=== PATIENT | male | born 1945 | race Caucasian/White ===

== ENCOUNTER 2016-11-26 02:11 | Emergency (ER) | payer MEDICARE, OTHER ==
[2016-11-26 02:35] VITALS: BP 131/70; TEMP 98.3; O2SAT 100
--- NOTE | 2016-11-26 02:44 | ED.PDOC ---
History of Present Illness - General Chief Complaint: General Stated Complaint: hiccups, sore throat, high heart rate Time Seen by Provider: 11/26/16 02:41 Source: patient Exam Limitations: no limitations - History of Present Illness Initial Comments: Devonte Saleh 71 y/o male w/dm 2 stated he had multiple episode of hiccups tonight unable to sleep decided to come to er.He stated that while filling up form his symptoms went away.Had previous episodes in the past was prescribed phenergan suppository. Timing/Duration: 4-6 hours, getting worse Severity: moderate Improving Factors: nothing Worsening Factors: nothing Associated Symptoms: denies symptoms Allergies/Adverse Reactions: Allergies NO KNOWN ALLERGY Allergy (Verified 07/26/15 06:26) Home Medications: Ambulatory Orders Aspirin [(None)] 325 mg PO DAILY 07/24/15 Canagliflozin [Invokana] 300 mg PO DAILY 07/24/15 Fluticasone Prop 0.05% Nasal [Flonase Nasal [place]] 50 mcg NA BEDTIME 07/24/15 Meloxicam 15 mg PO DAILY 07/24/15 Multiple Vitamins W/ Minerals [Centrum Silver] 1 tab PO DAILY 07/24/15 [place]-3 Fatty Acids [Fish Oil] 1,200 mg PO DAILY 07/24/15 Pantoprazole Sodium [Protonix] 40 mg PO DAILY 07/24/15 Ramipril 10 mg PO BEDTIME 07/24/15 Rosuvastatin Calcium [Crestor] 10 mg PO BEDTIME 07/24/15 Sitagliptin-Metformin HCl [Janumet] 1 tab PO DAILY 07/24/15 Zolpidem Tartrate [Ambien] 5 mg PO BEDTIME 07/24/15 amLODIPine BESYLATE [Norvasc] 5 mg PO DAILY 07/24/15 Promethazine HCl 50 mg PO TID PRN #30 tab 11/26/16 Review of Systems - Review of Systems Constitutional: States: no symptoms reported EENTM: States: no symptoms reported Respiratory: States: no symptoms reported Cardiology: States: no symptoms reported Gastrointestinal/Abdominal: States: see HPI Musculoskeletal: States: no symptoms reported Skin: States: no symptoms reported Neurological: States: no symptoms reported Endocrine: States: no symptoms reported Past Medical History (General) - Patient Medical History Hx Seizures: No Hx Stroke: No Hx Dementia: No Hx Asthma: No Hx of COPD: No Hx Cardiac Disorders: No Hx Congestive Heart Failure: No Hx Pacemaker: No Hx Hypertension: Yes Hx Thyroid Disease: Yes Hx Diabetes: Yes Hx Gastroesophageal Reflux: Yes Hx Renal Disease: No Hx Cancer: No Hx of HIV: No Hx Hepatitis C: No Hx MRSA: No Surgical History: other - carotid endarterectomy - Vaccination History Hx Tetanus, Diphtheria Vaccination: No Hx Influenza Vaccination: No Hx Pneumococcal Vaccination: No Immunizations Up to Date: Yes - Social History Hx Chewing Tobacco Use: No Hx Alcohol Use: No Hx Substance Use: No Hx Substance Use Treatment: No Hx Depression: No Feels Threatened In Home Enviroment: No Feels Threatened In a Relationship: No Hx Physical Abuse: No Hx Emotional Abuse: No Hx Suspected Abuse: No - Activities of Daily Living Hospice Agency (if applicable):: None Family Medical History - Family History Mother Family History: Unknown Living Status: Hx Family Hypertension: Yes Physical Exam - Physical Exam General Appearance: Alert, Anxious, No apparent distress Eye Exam: bilateral normal Ears, Nose, Throat: hearing grossly normal, normal ENT inspection, normal pharynx Neck: non-tender, full range of motion, supple Respiratory: chest non-tender, lungs clear, normal breath sounds, no respiratory distress, no accessory muscle use Cardiovascular/Chest: normal peripheral pulses, regular rate, rhythm, no edema, no gallop, no JVD, no murmur Peripheral Pulses: radial,right: 2+, radial,left: 2+ Gastrointestinal/Abdominal: normal bowel sounds, non tender, soft, no organomegaly, no pulsatile mass Back Exam: normal inspection, no CVA tenderness, no vertebral tenderness Extremity: normal range of motion, non-tender, normal inspection Neurologic: no motor/sensory deficits, alert, normal mood/affect Skin Exam: normal color, warm/dry Lymphatic: no adenopathy Departure - Departure Clinical Impression: Hiccups Time of Disposition: 02:49 Disposition: Discharge to Home or Self Care Condition: Good Departure Forms: ED Discharge - Pt. Copy, Patient Portal Self Enrollment Instructions: DI for Hiccups, Hiccups Prescriptions: Promethazine HCl 50 mg PO TID PRN #30 tab PRN Reason: hiccups Home Medications: Ambulatory Orders Aspirin [(None)] 325 mg PO DAILY 07/24/15 Canagliflozin [Invokana] 300 mg PO DAILY 07/24/15 Fluticasone Prop 0.05% Nasal [Flonase Nasal [place]] 50 mcg NA BEDTIME 07/24/15 Meloxicam 15 mg PO DAILY 07/24/15 Multiple Vitamins W/ Minerals [Centrum Silver] 1 tab PO DAILY 07/24/15 [place]-3 Fatty Acids [Fish Oil] 1,200 mg PO DAILY 07/24/15 Pantoprazole Sodium [Protonix] 40 mg PO DAILY 07/24/15 Ramipril 10 mg PO BEDTIME 07/24/15 Rosuvastatin Calcium [Crestor] 10 mg PO BEDTIME 07/24/15 Sitagliptin-Metformin HCl [Janumet] 1 tab PO DAILY 07/24/15 Zolpidem Tartrate [Ambien] 5 mg PO BEDTIME 07/24/15 amLODIPine BESYLATE [Norvasc] 5 mg PO DAILY 07/24/15 Promethazine HCl 50 mg PO TID PRN #30 tab 11/26/16 Additional Instructions: RETURN TO EMERGENCY ROOM NEEDED
[2016-11-26] MEDS ORDERED: PROMETHAZINE TAB (ER DISP) 25 MG TAB PO ONE (02:47)
== END 2016-11-26 02:59 | disposition home or self-care (01) ==
LOC: ER 02:11
DX: R06.6 Hiccough (principal); Z79.82 Long term (current) use of aspirin; Z79.899 Other long term (current) drug therapy; I10 Essential (primary) hypertension; E07.9 Disorder of thyroid, unspecified; E11.9 Type 2 diabetes mellitus without complications; K21.9 Gastro-esophageal reflux disease without esophagitis

== ENCOUNTER → 2017-01-14 | Outpatient (CLI) | payer MEDICARE, OTHER | END | disposition home or self-care (01) | LOC: GMAB 11:22 | PROVIDERS: ATTEND Family Medicine | DX: E11.8 Type 2 diabetes mellitus with unspecified complications (principal); Z12.5 Encounter for screening for malignant neoplasm of prostate; R53.83 Other fatigue; I10 Essential (primary) hypertension ==

== ENCOUNTER → 2017-05-22 | Outpatient (CLI) | payer MEDICARE, OTHER | END | disposition home or self-care (01) | LOC: GMAB 10:09 | PROVIDERS: ATTEND Family Medicine | DX: R94.6 Abnormal results of thyroid function studies (principal) ==

== ENCOUNTER → 2018-02-05 | Outpatient (CLI) | payer MEDICARE, OTHER | LOC: GMAB 10:37 | PROVIDERS: ATTEND Family Medicine | DX: E11.8 Type 2 diabetes mellitus with unspecified complications (principal); I10 Essential (primary) hypertension; Z12.5 Encounter for screening for malignant neoplasm of prostate; Z79.4 Long term (current) use of insulin | CPT/HCPCS: 84443; G0103 ==

== ENCOUNTER → 2018-10-22 | Outpatient (CLI) | payer MEDICARE, OTHER ==
--- NOTE | 2018-10-22 13:11 | RAD ---
EXAM DESCRIPTION: Pelvis CLINICAL HISTORY: PAIN IN RIGHT HIP COMPARISON: None FINDINGS: Single frontal view the pelvis. Pelvic ring is intact for SI joints and sacral struts are maintained. No acute fractures are demonstrated. 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 Displaced hip fractures. Normal bone density. Phleboliths and/or injection granulomas are noted. IMPRESSION: No acute radiographic abnormality. 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
== END ==
LOC: RAD 08:53
PROVIDERS: ATTEND Orthopaedic Surgery
DX: M25.551 Pain in right hip (principal)

== ENCOUNTER → 2019-04-20 | Outpatient (CLI) | payer MEDICARE, OTHER | LOC: GMAE 11:04 | PROVIDERS: ATTEND Family Medicine | DX: I10 Essential (primary) hypertension (principal); E11.8 Type 2 diabetes mellitus with unspecified complications; Z12.5 Encounter for screening for malignant neoplasm of prostate; Z79.4 Long term (current) use of insulin | CPT/HCPCS: 84443; G0103 ==

== ENCOUNTER → 2020-02-28 | Outpatient (CLI) | payer MEDICARE, OTHER | LOC: LAB.O 06:36 | PROVIDERS: ATTEND Family Medicine | DX: E11.9 Type 2 diabetes mellitus without complications (principal); I10 Essential (primary) hypertension; E78.5 Hyperlipidemia, unspecified; R53.83 Other fatigue ==

== ENCOUNTER → 2020-06-28 | Outpatient (CLI) | payer MEDICARE, OTHER ==
--- NOTE | 2020-06-28 23:26 | RAD ---
EXAM DESCRIPTION: Knee,Right Complete CLINICAL HISTORY: 74 years Male, PAIN IN RIGHT KNEE COMPARISON: None. TECHNIQUE: 3 view radiograph of the right knee. IMPRESSION: No acute displaced fracture. No dislocation. Severe narrowing of the medial weightbearing knee compartment. Mild lateral moderate medial subchondral sclerosis of the tibial plateau. Small joint line osteophytosis laterally. Severe patellofemoral arthrosis. Moderate knee joint effusion.. No lateral patellar tilt or subluxation. No soft tissue defect or radiopaque foreign body. Electronically signed by: Jairo Colon MD 06/28/2020 11:24 PM CDT
== END ==
LOC: YCFC.O 07:10
PROVIDERS: ATTEND Family Medicine
DX: M17.11 Unilateral primary osteoarthritis, right knee (principal); M25.861 Other specified joint disorders, right knee; M25.761 Osteophyte, right knee; M24.19 Other articular cartilage disorders, other specified site; M25.461 Effusion, right knee; E11.9 Type 2 diabetes mellitus without complications; R41.3 Other amnesia

== ENCOUNTER → 2020-07-21 | Outpatient (CLI) | payer MEDICARE, OTHER | LOC: YCFC.O 07:09 | PROVIDERS: ATTEND Family Medicine | DX: R76.8 Other specified abnormal immunological findings in serum (principal) ==

== ENCOUNTER 2020-08-19 17:10 | Inpatient (IN) | payer MEDICARE, OTHER ==
--- NOTE | 2020-08-19 18:24 | ED.PDOC ---
History of Present Illness - General Chief Complaint: Respiratory Problem Stated Complaint: shortness of breath Time Seen by Provider: 08/19/20 17:38 Source: patient, RN notes reviewed, Vital Signs reviewed, family - Exam Limitations: no limitations - History of Present Illness Initial Comments: Patient is a 75-year-old male who has been feeling sick for the last 10 days. 2 days ago he was tested for Covid and was found to be positive. Patient complains of worsening shortness of breath, cough, productive for clear sputum and intermittent fevers. Nothing makes the cough better or worse. He is more short of breath with exertion. Not improved markedly by resting. Timing/Duration: other - 10 days Severity: moderate Improving Factors: nothing Worsening Factors: movement Associated Symptoms: cough, fever/chills, malaise, shortness of breath, weakness Allergies/Adverse Reactions: Allergies NO KNOWN ALLERGY Allergy (Verified 07/26/15 06:26) Home Medications: Ambulatory Orders Aspirin [(None)] 325 mg PO DAILY 07/24/15 Canagliflozin [Invokana] 300 mg PO DAILY 07/24/15 Fluticasone Prop 0.05% Nasal [Flonase Nasal [place]] 50 mcg NA BEDTIME 07/24/15 Meloxicam 15 mg PO DAILY 07/24/15 Multiple Vitamins W/ Minerals [Centrum Silver] 1 tab PO DAILY 07/24/15 [place]-3 Fatty Acids [Fish Oil] 1,200 mg PO DAILY 07/24/15 Pantoprazole Tablet [Protonix] 40 mg PO DAILY 07/24/15 Ramipril 10 mg PO BEDTIME 07/24/15 Rosuvastatin Calcium [Crestor] 10 mg PO BEDTIME 07/24/15 Sitagliptin-Metformin HCl [Janumet] 1 tab PO DAILY 07/24/15 Zolpidem Tartrate [Ambien] 5 mg PO BEDTIME 07/24/15 amLODIPine BESYLATE [Norvasc] 5 mg PO DAILY 07/24/15 Promethazine HCl 50 mg PO TID PRN #30 tab 11/26/16 Review of Systems - Review of Systems Constitutional: States: see HPI, chills, fever, malaise, weakness EENTM: States: no symptoms reported. Denies: eye pain, blurred vision, double vision Respiratory: States: see HPI, cough, short of breath. Denies: stridor, wheezing Cardiology: States: no symptoms reported. Denies: chest pain, palpitations, syncope Gastrointestinal/Abdominal: States: no symptoms reported. Denies: abdominal pain, diarrhea, nausea, vomiting Genitourinary: States: no symptoms reported. Denies: dysuria, frequency Musculoskeletal: States: no symptoms reported. Denies: back pain, joint pain, neck pain Skin: States: no symptoms reported. Denies: change in color, rash Neurological: States: see HPI, weakness. Denies: tingling, tremors Endocrine: States: no symptoms reported. Denies: increased hunger, increased thirst, increased urine Hematologic/Lymphatic: States: no symptoms reported All other Systems: No Change from Baseline Past Medical History (General) - Patient Medical History Hx Seizures: No Hx Stroke: No Hx Dementia: No Hx Asthma: No Hx of COPD: No Hx Cardiac Disorders: No Hx Congestive Heart Failure: No Hx Pacemaker: No Hx Hypertension: Yes Hx Thyroid Disease: Yes Hx Diabetes: Yes Hx Gastroesophageal Reflux: Yes Hx Renal Disease: No Hx Cancer: No Hx of HIV: No Hx Hepatitis C: No Hx MRSA: No Surgical History: tonsillectomy, other - Vaccination History Hx Tetanus, Diphtheria Vaccination: No Hx Influenza Vaccination: No Hx Pneumococcal Vaccination: No - Social History Hx Chewing Tobacco Use: No Hx Alcohol Use: No Hx Substance Use: No Hx Substance Use Treatment: No Hx Depression: No Hx Physical Abuse: No Hx Emotional Abuse: No Hx Suspected Abuse: No Family Medical History - Family History Mother Family History: Unknown Living Status: Hx Family Hypertension: Yes Physical Exam - Physical Exam General Appearance: Alert, Anxious, Obvious distress, Restless, Well Developed, Well Groomed, Well Hydrated, Well Nourished Eye Exam: bilateral normal Ears, Nose, Throat: hearing grossly normal, normal ENT inspection, normal pharynx Neck: non-tender, full range of motion, supple Respiratory: chest non-tender, no accessory muscle use, respiratory distress - mild, rhonchi - bilaterally in the bases. Cardiovascular/Chest: normal peripheral pulses, regular rate, rhythm, no edema, no gallop, no JVD, no murmur Peripheral Pulses: radial,right: 2+, radial,left: 2+ Gastrointestinal/Abdominal: normal bowel sounds, non tender, soft Back Exam: normal inspection, no CVA tenderness, no vertebral tenderness Extremity: normal range of motion, non-tender, normal inspection, no pedal edema, no calf tenderness Neurologic: line and frame poler II-XII nml as tested, no motor/sensory deficits, alert, normal mood/affect, oriented x 3 Skin Exam: normal color, warm/dry Lymphatic: no adenopathy Progress - Progress Progress: Differential diagnosis: COVID-19, pneumonia, viral URI, chest mass among others. 08/19/20 19:58 Patient with oxygen saturation less than 85% on room air. Patient requires oxygen. Plan on admission to the hospital for Covid treatment. I discussed the plan of care with the patient he voices understanding and agreement. I discussed the plan with Casimiro Her NP and he accepts the patient for admission. Nathaniel Deng M.D. #[id number] - Results/Orders Results/Orders: EKG performed on 19 August 2020 at 1721 hrs.: Normal sinus rhythm at 95 bpm, normal axis deviation, no ST or T wave elevation or depression concerning for ischemia, normal EKG. No comparison EKG available at this time. EXAM: Chest,1 View CLINICAL INDICATION: 75-year-old male with cough and shortness of breath. TECHNIQUE: Single view, AP portable chest was obtained. COMPARISON: 10/19/2010. FINDINGS: Unremarkable cardiac and mediastinal silhouette. Heart size is normal. However, there appears to be irregular margin of the LEFT heart border raising the possibility of LEFT lower lobe mass, pericardial effusion or atelectasis/consolidation. Further evaluation with CT chest is recommended. Additionally, there are patchy foci of opacification present bilaterally raising the concern for subsegmental atelectasis versus consolidation/infectious process including atypical/viral infection in the correct clinical setting. Multifocal pneumonia is considered in the differential. No pneumothorax or pleural effusions. The visualized bones are within normal limits. IMPRESSION: 1. Multifocal patchy opacities concerning for subsegmental atelectasis versus infectious process as detailed above. 2. Large masslike opacity at the level of the LEFT heart border for which further evaluation with CT chest is recommended. Electronically signed by: Estrellita Jacob MD 08/19/2020 6:43 PM [employer] 08/19/20 17:56 Oxygen Delivery Assessment: QSHIFT 08/19/20 18:00 EKG STAT Oxygen STAT Pulse Ox, Continuous Monitoring STAT 08/19/20 18:02 D-DIMER,QUANTITATIVE Stat PARTIAL THROMBOPLASTIN TIME Stat 08/19/20 18:53 Chest w/Contrast [CT] Stat 08/19/20 18:54 Hold Metformin x 48Hrs [id number] 08/20/20 18:00 Oxygen STAT Pulse Ox, Continuous Monitoring STAT 08/21/20 18:00 Pulse Ox, Continuous Monitoring STAT Laboratory Results - last 24 hr 08/19/20 08/19/20 08/19/20 18:02 18:02 18:02 WBC 4.7 L RBC 4.12 L Hgb 12.6 L Hct 36.2 L MCV 87.8 MCH 30.7 MCHC 35.0 RDW 13.7 Plt Count 255 MPV 7.5 Absolute Neuts (auto) 3.70 Absolute Lymphs (auto) 0.60 L Absolute Monos (auto) 0.40 Absolute Eos (auto) 0.00 Absolute Basos (auto) 0.00 Neutrophils % 79.1 H Lymphocytes % 11.8 L Monocytes % 7.6 Eosinophils % 1.0 Basophils % 0.5 D-Dimer, Quantitative 1100.0 H* Sodium 125 L Potassium 4.4 Chloride 88 L Carbon Dioxide 23 Anion Gap 18.4 H BUN 23 H Creatinine 0.92 BUN/Creatinine Ratio 25.0 H Random Glucose 303 H Serum Osmolality 266.5 L Calcium 8.1 L Magnesium 1.7 L Total Bilirubin 0.7 AST 50 H ALT 35 Alkaline Phosphatase 142 H LD Total 288 H Creatine Kinase 96 Troponin I C-Reactive Protein 10.0 H* B-Natriuretic Peptide 15.8 Serum Total Protein 6.8 Albumin 3.4 Globulin 3.4 Albumin/Globulin Ratio 1.0 L Urine Color Urine Appearance Urine pH Ur Specific [place] Urine Protein Urine Glucose (UA) Urine Ketones Urine Blood Urine Nitrite Urine Bilirubin Urine Urobilinogen Ur Leukocyte Esterase Urine RBC Urine WBC Ur Epithelial Cells Urine Bacteria 08/19/20 08/19/20 18:02 18:03 WBC RBC Hgb Hct MCV MCH MCHC RDW Plt Count MPV Absolute Neuts (auto) Absolute Lymphs (auto) Absolute Monos (auto) Absolute Eos (auto) Absolute Basos (auto) Neutrophils % Lymphocytes % Monocytes % Eosinophils % Basophils % D-Dimer, Quantitative Sodium Potassium Chloride Carbon Dioxide Anion Gap BUN Creatinine BUN/Creatinine Ratio Random Glucose Serum Osmolality Calcium Magnesium Total Bilirubin AST ALT Alkaline Phosphatase LD Total Creatine Kinase Troponin I 0.02 C-Reactive Protein B-Natriuretic Peptide Serum Total Protein Albumin Globulin Albumin/Globulin Ratio Urine Color Yellow Urine Appearance Clear Urine pH 6.0 Ur Specific [place] 1.010 Urine Protein Negative Urine Glucose (UA) 500 H Urine Ketones Negative Urine Blood Negative Urine Nitrite Negative Urine Bilirubin Negative Urine Urobilinogen 0.2 Ur Leukocyte Esterase Negative Urine RBC 0 Urine WBC 0 Ur Epithelial Cells [address] CHEST WITH IV CONTRAST HISTORY: Dyspnea and cough. COMPARISON: None. TECHNIQUE: CT scan of the chest was performed with IV contrast. This exam was performed according to our departmental dose-optimization program, which includes automated exposure control, adjustment of the mA and/or kV according to patient size and/or use of iterative reconstruction technique. FINDINGS: There are multiple patchy groundglass opacities scattered throughout both lungs in a predominantly peripheral distribution. No pleural effusions or pneumothorax. The heart size is normal without pericardial effusion. There is mild bilateral hilar adenopathy and small mediastinal lymph nodes, likely reactive. The visualized portions of the upper abdomen are unremarkable. The bony thorax is intact. IMPRESSION: Commonly reported imaging features of viral pneumonia are present. Other processes such as influenza pneumonia and organizing pneumonia, as can be seen with drug toxicity and connective tissue disease, can cause a similar imaging pattern. [PneTyp] Reference: https://pubs.rsna.org/doi/full/10.1148/ryct.[email or web address] Electronically signed by: Eric Klein MD 08/19/2020 7:49 PM [employer] Vital Signs 08/19/20 08/19/20 17:28 18:30 Temperature 98.9 F Pulse Rate [ 88 84 right brachial] Respiratory 22 20 Rate Blood Pressure 141/93 163/74 [left brachial] O2 Sat by Pulse 86 L 93 L Oximetry Departure - Departure Clinical Impression: COVID-19, Hypoxia Time of Disposition: 20:00 Disposition: Admit Patient Condition: Fair Departure Forms: ED Discharge - Pt. Copy, Patient Portal Self Enrollment Diet: resume usual diet Activity: increase activity as tolerated Referrals: Ynes Childs FNP [Primary Care Provider] - 1-2 Weeks Home Medications: Ambulatory Orders Aspirin [(None)] 325 mg PO DAILY 07/24/15 Canagliflozin [Invokana] 300 mg PO DAILY 07/24/15 Fluticasone Prop 0.05% Nasal [Flonase Nasal [place]] 50 mcg NA BEDTIME 07/24/15 Meloxicam 15 mg PO DAILY 07/24/15 Multiple Vitamins W/ Minerals [Centrum Silver] 1 tab PO DAILY 07/24/15 [place]-3 Fatty Acids [Fish Oil] 1,200 mg PO DAILY 07/24/15 Pantoprazole Tablet [Protonix] 40 mg PO DAILY 07/24/15 Ramipril 10 mg PO BEDTIME 07/24/15 Rosuvastatin Calcium [Crestor] 10 mg PO BEDTIME 07/24/15 Sitagliptin-Metformin HCl [Janumet] 1 tab PO DAILY 07/24/15 Zolpidem Tartrate [Ambien] 5 mg PO BEDTIME 07/24/15 amLODIPine BESYLATE [Norvasc] 5 mg PO DAILY 07/24/15 Promethazine HCl 50 mg PO TID PRN #30 tab 11/26/16 Decision To Admit - Decistion To Admit Decision to Admit Date: 08/19/20 Decision to Admit Time: 18:30
--- NOTE | 2020-08-19 18:44 | RAD ---
EXAM: Chest,1 View CLINICAL INDICATION: 75-year-old male with cough and shortness of breath. TECHNIQUE: Single view, AP portable chest was obtained. COMPARISON: 10/19/2010. FINDINGS: Unremarkable cardiac and mediastinal silhouette. Heart size is normal. However, there appears to be irregular margin of the LEFT heart border raising the possibility of LEFT lower lobe mass, pericardial effusion or atelectasis/consolidation. Further evaluation with CT chest is recommended. Additionally, there are patchy foci of opacification present bilaterally raising the concern for subsegmental atelectasis versus consolidation/infectious process including atypical/viral infection in the correct clinical setting. Multifocal pneumonia is considered in the differential. No pneumothorax or pleural effusions. The visualized bones are within normal limits. IMPRESSION: 1. Multifocal patchy opacities concerning for subsegmental atelectasis versus infectious process as detailed above. 2. Large masslike opacity at the level of the LEFT heart border for which further evaluation with CT chest is recommended. Electronically signed by: Estrellita Jacob MD 08/19/2020 6:43 PM [facility]
[2020-08-19] MEDS ORDERED: cefTRIAXone SODIUM 1 GM in SODIUM CHL 0.9% 50ML MIN-BAG+ 50 ML IVPB ONE (18:57)
[2020-08-19] MEDS ORDERED: AZITHROMYCIN IV 500 MG in SODIUM CHLORIDE 0.9% 250ML 250 ML IVPB ONE (18:57)
[2020-08-19] MEDS ORDERED: DEXAMETHASONE INJ 10 MG/ML VIAL IV ONE (18:57)
[2020-08-19] MEDS ORDERED: REMDESIVIR 200 MG in SODIUM CHLORIDE 0.9% 250ML 250 ML IVPB ONE (18:58)
--- NOTE | 2020-08-19 19:51 | CT ---
CT CHEST WITH IV CONTRAST HISTORY: Dyspnea and cough. COMPARISON: None. TECHNIQUE: CT scan of the chest was performed with IV contrast. This exam was performed according to our departmental dose-optimization program, which includes automated exposure control, adjustment of the mA and/or kV according to patient size and/or use of iterative reconstruction technique. FINDINGS: There are multiple patchy groundglass opacities scattered throughout both lungs in a predominantly peripheral distribution. No pleural effusions or pneumothorax. The heart size is normal without pericardial effusion. There is mild bilateral hilar adenopathy and small mediastinal lymph nodes, likely reactive. The visualized portions of the upper abdomen are unremarkable. The bony thorax is intact. IMPRESSION: Commonly reported imaging features of viral pneumonia are present. Other processes such as influenza pneumonia and organizing pneumonia, as can be seen with drug toxicity and connective tissue disease, can cause a similar imaging pattern. [PneTyp] Reference: https://pubs.rsna.org/doi/full/10.1148/ryct.[email or web address] Electronically signed by: Eric Klein MD 08/19/2020 7:49 PM [facility]
--- NOTE | 2020-08-19 20:44 | HP ---
SUPERVISING PHYSICIAN: Ronald Blue MD CHIEF COMPLAINT: Increasing shortness of breath. HISTORY OF PRESENT ILLNESS: Mr. Saleh is a 75 year-old male patient that has been noting some generalized weakness, fever and chills over the last 10 days. He was tests 2 days previously for Covid-19 and found to be positive. He endorses that he has been having worsening shortness of breath in the last 24 hours with some clear sputum and intermittent fevers. His labs on admission showed he had a white count of 4,700 with a left shift. Coagulation studies showed D-dimer was elevated at 1100. Chemistries showed sodium 125 but corrected for glucose of 303 with potassium 4.4, magnesium 1.7 initially with liver functions showing slight elevation in AST at 50. Admission C-reactive protein was 10, troponin 0.02. CT of his chest per radiology interpretation showed findings consistent with viral pneumonia with multiple patchy ground glass opacities scattered throughout both lung murphy. Initially on presentation, the patient was showing to be hypoxic on room at 86%, with treatment and oxygen he was up to 92% at 4 liters, blood pressure 163/74, heart rate 96. The patient is now going to admitted for treatment of Covid-19 pneumonitis and hyponatremia control of blood sugar. He is admitted in stable condition. PAST MEDICAL HISTORY: 1. Hypertension. 2. Diabetes mellitus type 2. 3. Gastroesophageal reflux disease. PAST SURGICAL HISTORY: 1. Left endarterectomy. CURRENT MEDICATIONS: 1. Janumet 1 tablet b.i.d. 2. Meloxicam 15 mg daily. 3. Aspirin 81 mg daily. 4. [place] 3 fatty acids.1200 mg daily. 5. Centrum vitamins,1 tablet daily. 6. Flonase daily. 7. Promethazine as needed. 8. Protonix 40 mg. 9. Crestor 10 mg daily. 10. Amlodipine 5 mg daily. 11. Ambien 5 mg daily at bedtime. ALLERGIES: No known drug allergies. FAMILY HISTORY: Noncontributory to current admission. SOCIAL HISTORY: The patient is retired. He is and lives in [place], [place]. He denies tobacco, alcohol or illicit drug use. REVIEW OF SYSTEMS: CONSTITUTIONAL: As noted in history of present illness. Positive for chills, fever, general malaise, weakness. HEENT: Denies earache, sore throat, nasal congestion, headaches, vision changes. RESPIRATORY: As noted in history of present illness. Increasing cough, shortness of breath. CARDIOVASCULAR: Denies chest pain, palpitations, syncopal episodes. GASTROINTESTINAL: Denies nausea, vomiting or diarrhea, constipation, abdominal pain. GENITOURINARY: Denies dysuria, hematuria, polyuria. MUSCULOSKELETAL: Denies back pain, joint pain, neck pain, arthralgias. SKIN: Denies any unexplained changes, moles or lesions. NEUROLOGICAL: As noted in history of present illness. Positive for weakness, denies any tingling, tremors, paresthesias, ataxia, seizures. HEMATOLOGICAL: Denies any unexplained bleeding, bruising or transfusion reaction. PHYSICAL EXAMINATION: VITAL SIGNS: Temperature 98. 8, pulse 84, blood pressure 163/74, respirations 20-22, oxygen saturation 86% on room air. With oxygen, saturation anywhere from 92 to 93% on 4 liter nasal cannula. GENERAL: The patient looks to be resting comfortably, in no acute distress, he is alert. HEENT: Tympanic membranes clear bilaterally. Oropharynx pink, moist without lesions. NECK: Supple, full range of motion, no jugular venous distention. CHEST: Lung sounds are diminished bilaterally with no obvious rhonchi, rales, or wheezes. CARDIOVASCULAR: Regular rate and rhythm without appreciable murmurs, rubs, or gallops. ABDOMEN: Soft, non-tender, positive bowel sounds. EXTREMITIES: No cyanosis, clubbing, or edema. NEUROLOGIC: He is alert and oriented x 3. Cranial nerves II through XII grossly intact as tested. SKIN: Warm, pink and dry. LABORATORY: Initial white count 4,700, hemoglobin 12.6, hematocrit 36.2, platelet count 255,000, differential does show a left shift. Coagulation studies showed D-dimer of 1100. Chemistries show sodium 125, corrected to 128 for a blood sugar of 303. Anion gap was initially elevated at 18.4, BUN 23, creatinine 0.92, magnesium low at 1.7, calcium 8.1and liver functions showed just slight elevation in AST 50, ALT normal at 35. Troponin 0.02, C-reactive protein initially was 10. Urinalysis showed 500 glucose. MICROBIOLOGY: No specimens were submitted. RADIOLOGY: CT of the chest showed multiple patchy ground glass opacities scattered throughout both lungs in a predominantly peripheral distribution. No pleural effusions or pneumothorax. ASSESSMENT: 1. Covid-19 pneumonitis. 2. Diabetes mellitus type 2 poorly controlled. 3. Hyponatremia, mild. 4. Metabolic acidosis noted with elevated anion gap, likely due to uncontrolled blood sugars with hypoglycemia on admission exacerbated by #1. PLAN: Mr. Saleh is going to be admitted for further evaluation and treatment of Covid pneumonitis. We will have him on treatment per protocol as well as follow his labs and x-rays per protocol. I would anticipate his length of stay to be at least 2 to 3 days. Will have him on Align, Protonix and Lovenox. He will have sliding scale in place for control of blood sugars. We will have him on ADA diet. He is a little dry, giving additional fluids as necessary but encourage oral fluids at this point given his Covid-19 status. Hopefully will be able to discharge him in the next 2 to 3 days. Until the, we will continue to monitor and treat as needed. #[id number] [facility]
[2020-08-19] MEDS ORDERED: MAGNESIUM HYDROXIDE 30 ML UD PO PRN (21:00)
[2020-08-19] MEDS ORDERED: GLUCAGON INJ 1 MG VIAL SUBCU PRN (21:00)
[2020-08-19] MEDS ORDERED: SODIUM CHLORIDE 0.9% (FLUSH) 10 ML SYG IV PRN (21:00)
[2020-08-19] MEDS ORDERED: ONDANSETRON INJ 4 MG/2 ML VIAL IV PRN (21:00)
[2020-08-19] MEDS ORDERED: ACETAMINOPHEN 325 MG TAB PO PRN (21:00)
[2020-08-19] MEDS ORDERED: DEXTROSE 50% 25 GM/50 ML SYG IV PRN (21:00)
[2020-08-19] MEDS ORDERED: ALBUTEROL INHALER 64 PUFF/8GM INH PRN (21:05)
[2020-08-19] MEDS ORDERED: TEMAZEPAM 15 MG CAP ONE (21:31)
[2020-08-19] MEDS ORDERED: REMDESIVIR IV 100 MG VIAL ONE (21:31)
[2020-08-19] MEDS ORDERED: SODIUM CHLORIDE 0.9% 250ML 250 ML ONE (21:31)
[2020-08-19] MEDS: INSULIN LISPRO 100 UNITS/ML PEN SUBCU SCH (21:35)
[2020-08-19] MEDS: TEMAZEPAM 15 MG CAP PO PRN (21:37)
[2020-08-19] MEDS: IV SET AND CAP CHANGE INJ INJ SCH (23:23)
[2020-08-20] MEDS: PANTOPRAZOLE SODIUM IV 40 MG VIAL IV SCH (06:01)
[2020-08-20] MEDS: INSULIN LISPRO 100 UNITS/ML PEN SUBCU SCH ×6 (09:11→20:51)
[2020-08-20] MEDS ORDERED: MELOXICAM 7.5 MG TAB ONE (09:20)
[2020-08-20] MEDS ORDERED: SODIUM CHL 0.9% 50ML MIN-BAG+ 50 ML IVPB ONE (09:20)
[2020-08-20] MEDS ORDERED: cefTRIAXone SODIUM 1 GM VIAL ONE (09:20)
[2020-08-20] MEDS ORDERED: AZITHROMYCIN IV 500 MG VIAL IVPB ONE (09:20)
[2020-08-20] MEDS ORDERED: SODIUM CHLORIDE 0.9% 250ML 250 ML ONE (09:20)
[2020-08-20] MEDS ORDERED: REMDESIVIR IV 100 MG VIAL ONE (09:20)
[2020-08-20] MEDS: ALBUTEROL INHALER 64 PUFF/8GM INH SCH ×4 (10:05→21:16)
[2020-08-20] MEDS: guaiFENesin ER TAB 600 MG TAB PO SCH ×2 (10:41→20:45)
[2020-08-20] MEDS: BIFIDOBACTERIUM INFANTIS 4 MG CAP PO SCH (10:41)
[2020-08-20] MEDS: DEXAMETHASONE INJ 10 MG/ML VIAL IV SCH (10:41)
[2020-08-20] MEDS: ASPIRIN (CHEWABLE) 81 MG TAB PO SCH (10:41)
[2020-08-20] MEDS: NON-FORMULARY MEDICATION 1 EA MIS (Meloxicam [Meloxicam] 15 MG) PO SCH (10:41)
[2020-08-20] MEDS: amLODIPine BESYLATE 5 MG TAB PO SCH ×2 (10:41→20:45)
[2020-08-20] MEDS: cefTRIAXone SODIUM 1 GM in SODIUM CHL 0.9% 50ML MIN-BAG+ 50 ML IVPB SCH (10:42)
[2020-08-20] MEDS: REMDESIVIR 100 MG in SODIUM CHLORIDE 0.9% 250ML 250 ML IVPB SCH (10:42)
[2020-08-20] MEDS: AZITHROMYCIN IV 500 MG in SODIUM CHLORIDE 0.9% 250ML 250 ML IVPB SCH (10:42)
[2020-08-20] MEDS ORDERED: INSULIN DETEMIR 100 UNITS/ML PEN SUBCU SCH (11:00)
[2020-08-20] MEDS ORDERED: INSULIN DETEMIR 100 UNITS/ML PEN SUBCU ONE (12:11)
[2020-08-20] MEDS ORDERED: FLUTICASONE PROP 0.05% NASAL 16 GM BTTL ONE (18:53)
[2020-08-20] MEDS ORDERED: TEMAZEPAM 15 MG CAP ONE (19:13)
--- NOTE | 2020-08-20 20:00 | PN ---
SUPERVISING PHYSICIAN: : ROCIO RAMIREZ MD DATE: 08/20/20 SUBJECTIVE: The patient seems to be doing okay. He is actually able to maintain his 02 saturations at rest on low-flow. He has no other complaints. OBJECTIVE: VITAL SIGNS: Temperature 98, pulse 82, blood pressure 152/79, oxygen saturation 96% on 4 liter nasal cannula at rest. GENERAL: The patient looks to be resting comfortably. CHEST: Lung sounds little diminished towards the bases, otherwise fairly clear. HEART: Regular rate and rhythm. ABDOMEN: Soft, non-tender, positive bowel sounds. EXTREMITIES: With edema. NEUROLOGIC: He is alert and oriented x 3. LABORATORY: White count 3,400, hemoglobin 12.7, hematocrit 36.7, platelet count 272,000, differential does show a left shift. Coagulation studies show D-dimer 1010 now which is down a little bit from admission of 1100. Chemistries show sodium 128 corrected to 131 for a glucose of 349. Potassium 4.9, creatinine 0.84, magnesium has normalized at 2.0. AST down a little bit to 47, ALT remains normal. Ferritin protein a little elevated today compared to yesterday at 11.6. MICROBIOLOGY: No specimens were pending. RADIOLOGY: No additional radiographic studies today. ASSESSMENT: 1. Covid-19 pneumonitis. 2. Diabetes mellitus type 2 poorly controlled. 3. Hyponatremia, mild. 4. Metabolic acidosis noted with elevated anion gap, likely due to uncontrolled blood sugars with hypoglycemia on admission exacerbated by #1. PLAN: We will continue with current plan of care for Covid-19 pneumonitis. He remains on azithromycin, Rocephin, Decadron, Remdesivir. He is on Align and Protonix as well. I did start him on some Levemir, I think we will probably have to go to a little higher dose and maybe twice a day as his blood sugar is still quite elevated and I have added additional a.c. coverage to see if we can get his blood sugars better controlled. Hopefully we will be able to transition to outpatient management within the next 24-48 hours. Until then, we will continue to monitor and treat as needed. #[id number] [facility]
[2020-08-20] MEDS: TEMAZEPAM 15 MG CAP PO PRN (20:45)
[2020-08-20] MEDS: ENOXAPARIN SODIUM 40 MG/0.4 ML SYG SUBCU SCH (20:45)
[2020-08-20] MEDS: INSULIN DETEMIR 100 UNITS/ML PEN SUBCU SCH (20:54)
[2020-08-20] MEDS ORDERED: NON-FORMULARY MEDICATION 1 EA MIS (Fluticasone Prop 0.05% Nasal [Flonase Nasal Spray] 50 M SCH (21:00)
[2020-08-21] MEDS: TEMAZEPAM 15 MG CAP PO PRN ×2 (02:34→21:30)
[2020-08-21] MEDS ORDERED: PANTOPRAZOLE SODIUM IV 40 MG VIAL ONE (03:48)
[2020-08-21] MEDS: PANTOPRAZOLE SODIUM IV 40 MG VIAL IV SCH (06:06)
[2020-08-21] MEDS ORDERED: DEXAMETHASONE INJ 10 MG/ML VIAL ONE (07:26)
[2020-08-21] MEDS ORDERED: BIFIDOBACTERIUM INFANTIS 4 MG CAP ONE (07:26)
[2020-08-21] MEDS ORDERED: amLODIPine BESYLATE 5 MG TAB ONE (07:26)
[2020-08-21] MEDS ORDERED: MELOXICAM 7.5 MG TAB ONE (07:27)
[2020-08-21] MEDS ORDERED: AZITHROMYCIN IV 500 MG VIAL IVPB ONE (07:27)
[2020-08-21] MEDS ORDERED: ASPIRIN (CHEWABLE) 81 MG TAB ONE (07:27)
[2020-08-21] MEDS ORDERED: REMDESIVIR IV 100 MG VIAL ONE (07:27)
[2020-08-21] MEDS ORDERED: SODIUM CHLORIDE 0.9% 250ML 250 ML ONE (07:27)
[2020-08-21] MEDS ORDERED: cefTRIAXone SODIUM 1 GM VIAL ONE (07:27)
[2020-08-21] MEDS ORDERED: guaiFENesin ER TAB 600 MG TAB ONE (07:27)
[2020-08-21] MEDS ORDERED: SODIUM CHL 0.9% 250ML (AVIVA) 250 ML IVPB ONE (07:28)
[2020-08-21] MEDS ORDERED: SODIUM CHL 0.9% 50ML MIN-BAG+ 50 ML IVPB ONE (07:28)
[2020-08-21] MEDS: ALBUTEROL INHALER 64 PUFF/8GM INH SCH ×4 (08:06→20:15)
[2020-08-21] MEDS: INSULIN LISPRO 100 UNITS/ML PEN SUBCU SCH ×7 (08:09→21:29)
[2020-08-21] MEDS: INSULIN DETEMIR 100 UNITS/ML PEN SUBCU SCH ×2 (08:10→21:29)
[2020-08-21] MEDS: DEXAMETHASONE INJ 10 MG/ML VIAL IV SCH (08:39)
[2020-08-21] MEDS: ASPIRIN (CHEWABLE) 81 MG TAB PO SCH (08:39)
[2020-08-21] MEDS: BIFIDOBACTERIUM INFANTIS 4 MG CAP PO SCH (08:39)
[2020-08-21] MEDS: NON-FORMULARY MEDICATION 1 EA MIS (Meloxicam [Meloxicam] 15 MG) PO SCH (08:39)
[2020-08-21] MEDS: amLODIPine BESYLATE 5 MG TAB PO SCH ×2 (08:40→21:28)
[2020-08-21] MEDS: guaiFENesin ER TAB 600 MG TAB PO SCH ×2 (08:40→21:28)
[2020-08-21] MEDS: REMDESIVIR 100 MG in SODIUM CHLORIDE 0.9% 250ML 250 ML IVPB SCH (08:40)
[2020-08-21] MEDS: cefTRIAXone SODIUM 1 GM in SODIUM CHL 0.9% 50ML MIN-BAG+ 50 ML IVPB SCH (08:41)
[2020-08-21] MEDS: AZITHROMYCIN IV 500 MG in SODIUM CHLORIDE 0.9% 250ML 250 ML IVPB SCH (11:26)
--- NOTE | 2020-08-21 17:23 | PN ---
SUPERVISING PHYSICIAN: Clifford Tejada MD DATE: 08/21/20 SUBJECTIVE: The patient is sitting up on the side of the bed eating. He is feeling much better. He has minimal shortness of breath with exertion and denies chest pain. OBJECTIVE: VITAL SIGNS: Temperature 98, heart rate 71, blood pressure 137/82, respiratory rate 20, O2 saturation 92% on 2 liters nasal cannula. RESPIRATORY: Somewhat digital motion at the bases, but otherwise clear to auscultation. CARDIAC: Regular rate and rhythm. NEUROLOGIC: Awake, alert and oriented times three. LABORATORY: WBCs 7, hemoglobin 12.4, hematocrit 35.9. He has a left shift on differential. Fibrinogen 428, D-dimer 699. Electrolytes are basically within normal limits with the exception of calcium slightly low at 8.3. AST 54, LD 286, C-reactive protein 7. RADIOLOGY: Chest CT shows 1) Commonly reported imaging features of viral pneumonia present. Other processes such as influenza pneumonia and organizing pneumonia as can be seen with drug toxicity and connective tissue disease, can cause a similar imaging pattern. All other labs and films have been reviewed via the EMR. ASSESSMENT: 1. COVID-19 pneumonitis. 2. Diabetes mellitus, type 2, poorly controlled. 3. Hyponatremia, mild. 4. Metabolic acidosis with elevated anion gap, likely due to uncontrolled blood sugars with hypoglycemia on admission exacerbated by #1. PLAN: We will continue present supportive care including the COVID guidelines including labs and medications. His blood sugars have normalized. We may need to adjust his diabetic medications or have his primary care physician follow those closely on discharge. I ordered lab and chest x-ray for in the morning. We will need to do an ambulation study as well. [facility][id number] [facility]
[2020-08-21] MEDS: ENOXAPARIN SODIUM 40 MG/0.4 ML SYG SUBCU SCH (21:29)
[2020-08-21] MEDS: FLUTICASONE PROP 0.05% NASAL 16 GM BTTL BNAS SCH (21:30)
[2020-08-22] MEDS ORDERED: PANTOPRAZOLE SODIUM TAB 40 MG PO ONE (04:15)
[2020-08-22] MEDS: PANTOPRAZOLE SODIUM TAB 40 MG PO SCH (06:23)
--- NOTE | 2020-08-22 07:32 | RAD ---
EXAM: XR Chest, 1 View CLINICAL HISTORY: covid PNA TECHNIQUE: Frontal view of the chest. COMPARISON: 08/19/2020 FINDINGS: Lungs: No interval change bilateral patchy airspace disease and underlying bilateral interstitial thickening. Pleural space: No pneumothorax or pleural effusion. Heart: Stable cardiac shadow. Mediastinum: No abnormality noted. Bones/joints: No osseous destruction or sclerosis noted. IMPRESSION: Stable abnormalities as above. Electronically signed by: Marina Eden MD 08/22/2020 7:30 AM ENVIRONMENTAL FIELD TEAM MEMBER
[2020-08-22] MEDS: INSULIN DETEMIR 100 UNITS/ML PEN SUBCU SCH ×2 (08:18→21:27)
[2020-08-22] MEDS: INSULIN LISPRO 100 UNITS/ML PEN SUBCU SCH ×7 (08:18→21:27)
[2020-08-22] MEDS: ALBUTEROL INHALER 64 PUFF/8GM INH SCH ×4 (09:00→22:00)
[2020-08-22] MEDS: cefTRIAXone SODIUM 1 GM in SODIUM CHL 0.9% 50ML MIN-BAG+ 50 ML IVPB SCH (10:38)
[2020-08-22] MEDS: REMDESIVIR 100 MG in SODIUM CHLORIDE 0.9% 250ML 250 ML IVPB SCH (10:38)
[2020-08-22] MEDS: DEXAMETHASONE INJ 10 MG/ML VIAL IV SCH (10:40)
[2020-08-22] MEDS: guaiFENesin ER TAB 600 MG TAB PO SCH ×2 (10:41→20:31)
[2020-08-22] MEDS: BIFIDOBACTERIUM INFANTIS 4 MG CAP PO SCH (10:41)
[2020-08-22] MEDS: amLODIPine BESYLATE 5 MG TAB PO SCH ×2 (10:41→20:31)
[2020-08-22] MEDS: ASPIRIN (CHEWABLE) 81 MG TAB PO SCH (10:41)
[2020-08-22] MEDS: MELOXICAM 7.5 MG TAB PO SCH (10:41)
[2020-08-22] MEDS: AZITHROMYCIN IV 500 MG in SODIUM CHLORIDE 0.9% 250ML 250 ML IVPB SCH (14:34)
[2020-08-22] MEDS ORDERED: HYDROCORT 2.5% CRM (ANUSOL HC) 30 GM TUBE PR PRN (17:44)
[2020-08-22] MEDS: FLUTICASONE PROP 0.05% NASAL 16 GM BTTL BNAS SCH (20:31)
[2020-08-22] MEDS: ENOXAPARIN SODIUM 40 MG/0.4 ML SYG SUBCU SCH (20:32)
[2020-08-22] MEDS: TEMAZEPAM 15 MG CAP PO PRN (20:39)
[2020-08-22] MEDS: IV SET AND CAP CHANGE INJ INJ SCH (22:20)
[2020-08-23] MEDS: PANTOPRAZOLE SODIUM TAB 40 MG PO SCH (05:51)
--- NOTE | 2020-08-23 08:26 | PN ---
SUPERVISING PHYSICIAN: Clifford Tejada MD DATE: 08/22/20 SUBJECTIVE: The patient is sitting up in bed. He is still quite weak and has been unable to wean his oxygen off. He says he does not get short of breath at rest, but he does with any exertion. He denies chest pain, nausea or vomiting. OBJECTIVE: VITAL SIGNS: Temperature 98, heart rate 81, blood pressure 141/76, respiratory rate 20, O2 saturation 93% on 4 liters nasal cannula. RESPIRATORY: Essentially clear to auscultation bilaterally, somewhat diminished at the bases. CARDIAC: Regular rate and rhythm. NEUROLOGIC: Awake, alert and oriented times three. LABORATORY: WBCs 10.5, hemoglobin 12.9, hematocrit 37. He has a left shift on differential. D-dimer 653. Electrolytes are basically within normal limits with the exception of calcium slightly low at 8.5. AST 62, ALT 62, LD 297, C- reactive protein 2.8. RADIOLOGY: Chest CT shows stable abnormalities as per the radiology report. ASSESSMENT: 1. COVID-19 pneumonitis. 2. Diabetes mellitus, type 2, poorly controlled. 3. Hyponatremia, mild. 4. Metabolic acidosis with elevated anion gap, likely due to uncontrolled blood sugars with hypoglycemia on admission exacerbated by #1. PLAN: We will continue present supportive care including the COVID guidelines. I will hold on labs tomorrow as they are fairly stable. I have ordered a dietary consult as well as a physical therapy evaluation. We have also ordered home O2 as the patient will most likely need it for several weeks at home. He will need home health with physical therapy for strengthening and conditioning. [facility][id number] [facility]
[2020-08-23] MEDS: INSULIN LISPRO 100 UNITS/ML PEN SUBCU SCH ×6 (08:29→19:06)
[2020-08-23] MEDS: ALBUTEROL INHALER 64 PUFF/8GM INH SCH ×3 (09:50→16:45)
[2020-08-23] MEDS: INSULIN DETEMIR 100 UNITS/ML PEN SUBCU SCH (10:10)
[2020-08-23] MEDS: ASPIRIN (CHEWABLE) 81 MG TAB PO SCH (10:10)
[2020-08-23] MEDS: guaiFENesin ER TAB 600 MG TAB PO SCH (10:10)
[2020-08-23] MEDS: DEXAMETHASONE INJ 10 MG/ML VIAL IV SCH (10:10)
[2020-08-23] MEDS: MELOXICAM 7.5 MG TAB PO SCH (10:10)
[2020-08-23] MEDS: BIFIDOBACTERIUM INFANTIS 4 MG CAP PO SCH (10:10)
[2020-08-23] MEDS: REMDESIVIR 100 MG in SODIUM CHLORIDE 0.9% 250ML 250 ML IVPB SCH (10:11)
[2020-08-23] MEDS: amLODIPine BESYLATE 5 MG TAB PO SCH (10:11)
[2020-08-23] MEDS: cefTRIAXone SODIUM 1 GM in SODIUM CHL 0.9% 50ML MIN-BAG+ 50 ML IVPB SCH (10:11)
[2020-08-23 10:33] VITALS: O2SAT 97
[2020-08-23 15:28] VITALS: BP 157/79; TEMP 98.3
[2020-08-23] MEDS: AZITHROMYCIN IV 500 MG in SODIUM CHLORIDE 0.9% 250ML 250 ML IVPB SCH (15:31)
--- NOTE | 2020-09-04 10:50 | DS ---
SUPERVISING PHYSICIAN: Clifford Tejada MD DISCHARGE DIAGNOSIS: 1. COVID-19 pneumonitis. 2. Diabetes mellitus, type 2, poorly controlled. 3. Hyponatremia, mild. 4. Metabolic acidosis with elevated anion gap, most likely due to uncontrolled blood sugars. HISTORY OF PRESENT ILLNESS: This is a 75-year-old male patient who had well- visualized days of generalized weakness, fever and chills that had been going on for about 10 days. He was tested two days prior to coming into the Emergency Room for COVID-19 and found to be positive. It worsened over the next one to two days. He had some clear sputum and intermittent fevers. His initial labs showed white count of 4,700 with a left shift. D-dimer was elevated at 1100. Chemistries showed sodium 125 but corrected for glucose of 303 with potassium 4.4, magnesium 1.7. AST was 50. C-reactive protein was 10, troponin 0.02. CT of his chest per radiology interpretation showed findings consistent with viral pneumonia with multiple patchy ground glass opacities scattered throughout both lung murphy. The patient was initially hypoxic on room at 86%. Once he was given breathing treatments and placed on oxygen, his O2 saturation went up to 92% at 4 liters. Blood pressure 163/74, heart rate 96. The patient was admitted to the hospital for COVID-19 pneumonitis and hypoglycemia to get control of his blood sugars. HOSPITAL COURSE: The patient was admitted to the hospital and started on COVID guidelines including Remdesivir, azithromycin, Rocephin and Decadron. He was also placed on Protonix for ulcer prophylaxis and Lovenox for DVT prophylaxis. He had sliding scale insulin per protocol. He was given aggressive pulmonary hygiene. His home medications were re-started. His lab work stabilized fairly quickly, but his O2 saturations remained in the uppers 80s and low 90s and was unable to get off of oxygen. His COVID medications were continued. His blood sugars were initially quite elevated, but somewhat stabilized. He was actually thought to be able to go home the day prior to discharge, but we were unable to get his oxygen saturations up without O2. Clinically, he improved other than his high oxygen needs. Home O2 was actually ordered. Although he was quite weak and unable to get off of oxygen, he will be discharged home today in stable condition. He will have home health to assist in his recovery. LABORATORY: WBCs have stabilized to 10.5. Hemoglobin and hematocrit stable at 12.9 and 37. D-dimer 1100 and is now 653. Sodium is now stable at 138 with potassium 4, chloride 103. BUN 22, creatinine 0.63, calcium slightly low at 8.2. Magnesium 2. AST 62, ALT 62, LD 297. C-reactive protein improved to 2.8. Urinalysis unremarkable except for 500 of urine glucose. RADIOLOGY: Chest CT showed commonly reported imaging features of viral pneumonia. His final chest x-ray showed stable abnormalities as describes in his chest x-ray report. DISCHARGE PLAN: The patient will be discharged home with home health. He can resume his previous diet. He is strongly encouraged to follow closer diabetic diet. He is to followup with his primary care physician in 1 to 2 weeks. In addition to his routine medications, he will continue with Align, guaifenesin, albuterol, cefdinir, dexamethasone and azithromycin. He is to return to the hospital or followup with his primary care physician for any problems or complications. MEDICATIONS: 1. Crestor. 2. Ramipril. 3. Amlodipine. 4. Janumet. 5. Meloxicam. 6. Zolpidem. 7. Multivitamins. 8. Aspirin. 9. Glargine insulin. 10. Tramadol. 11. Lansoprazole. 12. Donepezil. 13. Citalopram. 14. Align. 15. Anusol. 16. Guaifenesin. 17. Albuterol. 18. Cefdinir. 19. Dexamethasone. 20. Azithromycin. #[id number] [facility]
== END 2020-08-23 18:25 | disposition home health service (06) | DRG 177 ==
LOC: ER 17:10 → MS 20:43 → OBSVTOIN 20:43
PROVIDERS: ADMIT Nurse Practitioner Family; ATTEND Nurse Practitioner Acute Care
PROC: BW241ZZ Computerized Tomography (CT Scan) of Chest and Abdomen using Low Osmolar Contrast (ICD-10-PCS; principal; 2020-08-19)
PROC: XW033E5 Introduction of Remdesivir Anti-infective into Peripheral Vein, Percutaneous Approach, New Technology Group 5 (ICD-10-PCS; 2020-08-19)
DX: U07.1 COVID-19 (principal); J12.89 Other viral pneumonia; E87.1 Hypo-osmolality and hyponatremia; E87.2 Acidosis; E11.65 Type 2 diabetes mellitus with hyperglycemia; I10 Essential (primary) hypertension; K21.9 Gastro-esophageal reflux disease without esophagitis; Z79.1 Long term (current) use of non-steroidal anti-inflammatories (NSAID); Z79.82 Long term (current) use of aspirin; Z79.899 Other long term (current) drug therapy

== ENCOUNTER 2020-08-30 07:16 | Emergency (ER) | payer MEDICARE, OTHER ==
[2020-08-30] MEDS ORDERED: LACTATED RINGERS 1,000 ML IVS ONE ×2 (07:23→07:57)
--- NOTE | 2020-08-30 07:33 | ED.PDOC ---
History of Present Illness - General Time Seen by Provider: 08/30/20 07:22 Source: patient - History of Present Illness Initial Comments: PATIENT PRESENTS WITH GENERALIZED WEAKNESS, STATES HE HAD A FALL YESTERDAY AT HOME AND HIT HIS KNEES, STATES HE'S NOW FEELING SORE IN HIS BACK. PATIENT WITH ONSET OF RESPIRATORY ILLNESS 3 WEEKS AGO, WAS DIAGNOSED WITH COVID 2 WEEKS AGO, REQUIRED ADMISSION TO THE HOSPITAL 11 DAYS AGO WITH COVID PNEUMONIA AND WAS DISC HARGED ABOUT A WEEK AGO ON HOME O2. PT WITH HISTORY OF DIABETES, APPARENTLY WAS STILL ON CORTICOSTERIODS AT HOME RECENTLY AND HIS GLUCOSE MEASUREMENTS HAVE REMAINED VERY HIGH (400 RANGE). PATIENT REPORTS A 20 POUND WEIGHT LOSS SINCE THE BEGINNING OF HIS ILLNESS. THE WAS DISCUSSION OF SENDING HIM FOR REHAB ON DISCHARGE FROM THE HOSPITAL DUE TO GENERALIZED WEAKNESS, BUT WAS INSTEAD APPARENTLY SENT HOME. HIS IS RECOVERING FROM GB SURGERY. SO THINGS ARE CHALLENGING FOR BOTH OF THEM RIGHT NOW. Improving Factors: nothing Worsening Factors: nothing Associated Symptoms: cough Allergies/Adverse Reactions: Allergies NO KNOWN ALLERGY Allergy (Verified 08/20/20 17:36) Home Medications: Ambulatory Orders Meloxicam 15 mg PO DAILY 07/24/15 Multiple Vitamins W/ Minerals [Centrum Silver] 1 tab PO DAILY 07/24/15 Ramipril 10 mg PO BEDTIME 07/24/15 Rosuvastatin Calcium [Crestor] 10 mg PO BEDTIME 07/24/15 Sitagliptin-Metformin HCl [Janumet 50-1000 mg] 50 - 100 tab PO BID 07/24/15 Zolpidem Tartrate [Ambien] 5 mg PO BEDTIME 07/24/15 amLODIPine BESYLATE [Norvasc] 5 mg PO BID 07/24/15 Aspirin [Aspirin 81 Low Dose] 325 mg PO DAILY 08/19/20 Insulin Glargine [Basaglar Kwikpen] 15 - 25 unit SC BID 08/19/20 Citalopram Hydrobromide [Citalopram] 20 mg PO DAILY 08/20/20 Donepezil Hydrochloride [Donepezil HCl] 10 mg PO DAILY 08/20/20 Lansoprazole 15 mg PO DAILY 08/20/20 Tramadol HCl 50 mg PO PRN 08/20/20 Albuterol Inhaler [Ventolin Hfa Inhaler] 2 puff INH PRN PRN inh 08/23/20 Albuterol Inhaler [Ventolin Hfa Inhaler] 2 puff INH RTQID inh 08/23/20 Azithromycin Tab [Zithromax Tab] 250 mg PO QD #4 tab 08/23/20 Bifidobacterium Infantis [Align] 4 mg PO DAILY cap 08/23/20 Hydrocort 2.5% Crm (Anusol Hc) [Anusol-HC Cream] 1 applic TN QID PRN appli 08/23/20 guaiFENesin ER TAB [Mucinex Tab] 600 mg PO BID tab 08/23/20 Review of Systems - Review of Systems Constitutional: States: see HPI EENTM: States: no symptoms reported Respiratory: States: cough, short of breath Cardiology: States: no symptoms reported Gastrointestinal/Abdominal: States: no symptoms reported Musculoskeletal: States: back pain, muscle stiffness Skin: States: no symptoms reported Neurological: States: weakness. Denies: numbness, paresthesia, tingling Endocrine: States: increased thirst, increased urine, unexplained weight loss Past Medical History (General) - Patient Medical History Hx Seizures: No Hx Stroke: No Hx Dementia: No Hx Asthma: No Hx of COPD: No Hx Cardiac Disorders: No Hx Congestive Heart Failure: No Hx Pacemaker: No Hx Hypertension: Yes Hx Thyroid Disease: Yes Hx Diabetes: Yes Hx Gastroesophageal Reflux: Yes Hx Renal Disease: No Hx Cancer: No Hx of HIV: No Hx Hepatitis C: No Hx MRSA: No - Vaccination History Hx Tetanus, Diphtheria Vaccination: No Hx Influenza Vaccination: No Hx Pneumococcal Vaccination: No - Social History Hx Chewing Tobacco Use: No Hx Alcohol Use: No Hx Substance Use: No Hx Substance Use Treatment: No Hx Depression: No Hx Physical Abuse: No Hx Emotional Abuse: No Hx Suspected Abuse: No Family Medical History - Family History Mother Family History: Unknown Living Status: Hx Family Hypertension: Yes Physical Exam - Physical Exam General Appearance: Well Developed, Well Groomed, Well Hydrated, Well Nourished Neck: non-tender, full range of motion, supple, normal inspection Respiratory: chest non-tender, normal breath sounds, no respiratory distress Cardiovascular/Chest: normal peripheral pulses, regular rate, rhythm, no edema, no gallop, no JVD Gastrointestinal/Abdominal: normal bowel sounds, non tender, soft, no organomegaly Extremity: normal range of motion, non-tender, normal inspection Progress - Progress Progress: 08/30/20 12:10 HAVE CONSULTED BOTH HOSPITALIST AND MANUAL QA TESTER AND WE ARE WAITING ON THEIR DECISION TO WHETHER TO OBSERVE THE PATIENT AWAITING A NH BED OR DIRECT ADMIT TO RESIDENTIAL FROM THE ER. PATIENT IS PROFOUNDLY WEAK AND UNABLE TO CARE FOR HIMSELF AT HOME A RESULT OF THE COVID-19 VIRUS AND COVID PNEUMONIA, 08/30/20 12:23 PER MANUAL QA TESTER, ARRANGEMENTS BEING MADE TO ADMIT TO RESIDENTIAL, PATIENT TO BE DISCHARGED TO [facility] FOR REHAB SERVICES. Departure - Departure Clinical Impression: Generalized weakness, Muscle atrophy of lower extremity, Weight loss, abnormal, Pneumonia due to COVID-19 virus Time of Disposition: 12:10 Disposition: Discharge to SNF Condition: Fair Instructions: Generalized Weakness (DC), Fatigue, Performing Self-Care Activities When You Have Weakness on One Side Diet: diabetic diet Referrals: Ynes Childs FNP [Primary Care Provider] - 1-2 Weeks Home Medications: Ambulatory Orders Meloxicam 15 mg PO DAILY 07/24/15 Multiple Vitamins W/ Minerals [Centrum Silver] 1 tab PO DAILY 07/24/15 Ramipril 10 mg PO BEDTIME 07/24/15 Rosuvastatin Calcium [Crestor] 10 mg PO BEDTIME 07/24/15 Sitagliptin-Metformin HCl [Janumet 50-1000 mg] 50 - 100 tab PO BID 07/24/15 Zolpidem Tartrate [Ambien] 5 mg PO BEDTIME 07/24/15 amLODIPine BESYLATE [Norvasc] 5 mg PO BID 07/24/15 Aspirin [Aspirin 81 Low Dose] 325 mg PO DAILY 08/19/20 Insulin Glargine [Basaglar Kwikpen] 15 - 25 unit SC BID 08/19/20 Citalopram Hydrobromide [Citalopram] 20 mg PO DAILY 08/20/20 Donepezil Hydrochloride [Donepezil HCl] 10 mg PO DAILY 08/20/20 Lansoprazole 15 mg PO DAILY 08/20/20 Tramadol HCl 50 mg PO PRN 08/20/20 Albuterol Inhaler [Ventolin Hfa Inhaler] 2 puff INH PRN PRN inh 08/23/20 Albuterol Inhaler [Ventolin Hfa Inhaler] 2 puff INH RTQID inh 08/23/20 Azithromycin Tab [Zithromax Tab] 250 mg PO QD #4 tab 08/23/20 Bifidobacterium Infantis [Align] 4 mg PO DAILY cap 08/23/20 Hydrocort 2.5% Crm (Anusol Hc) [Anusol-HC Cream] 1 applic TN QID PRN appli guaiFENesin ER TAB [Mucinex Tab] 600 mg PO BID tab 08/23/20
--- NOTE | 2020-08-30 07:49 | RAD ---
EXAM: Single view chest. INDICATION: Pneumonia. COMPARISON: Chest x-ray: 08/22/2020. FINDINGS: Improvement of the bilateral pulmonary opacities with persistent interstitial opacities along the right midlung. Left lung is clear. No focal consolidation. Heart is normal in size. No pneumothorax or pleural effusion. Bones are unremarkable. IMPRESSION: Improvement of the bilateral pulmonary opacities with persistent interstitial opacities along the right midlung. Electronically signed by: Kendrick Mena MD 08/30/2020 7:47 AM CUSTOMER MARKETING INTERN
[2020-08-30] MEDS ORDERED: IBUPROFEN 200 MG TAB ONE (08:25)
[2020-08-30] MEDS ORDERED: IBUPROFEN 200 MG TAB PO ONE (08:25)
--- NOTE | 2020-08-30 09:43 | RAD ---
EXAM DESCRIPTION: Chest,1 View CLINICAL HISTORY: 75 years Male, SOB COMPARISON: August 30, 2020 0746 hours TECHNIQUE: X-ray 1 view chest AP portable FINDINGS: Interval worsening in peripheral groundglass opacities on both sides mainly lower lobes. No effusion. Heart size normal. IMPRESSION: Bilateral pneumonia most compatible with COVID19 Electronically signed by: Blaise Perez MD 08/30/2020 9:42 AM SPECIAL EDUCATION RESOURCE TEACHER
--- NOTE | 2020-08-30 10:53 | CT ---
EXAM DESCRIPTION: CTA Chest CLINICAL HISTORY: 75 years Male, SOB COMPARISON: None. TECHNIQUE: Transaxial images were obtained with intravenous contrast media. Multiplanar reconstruction was performed. No 3-D reconstruction was performed.This exam was performed according to our departmental dose-optimization program, which includes automated exposure control, adjustment of the mA and/or kV according to patient size and/or use of iterative reconstruction technique. FINDINGS: The thyroid is normal in appearance. No pathologic axillary adenopathy is observed. A prominent left aortopulmonary window lymph node is observed. Opacification of the pulmonary vasculature is less than optimal. No evidence for pulmonary embolus is detected. No pleural fluid is seen. No adrenal masses are detected. Bilateral interstitial infiltrate is observed and may represent residua from viral pneumonia. There is less interstitial infiltrate than seen previously. The thoracic aorta exhibits minimal calcific atherosclerotic disease. No evidence of aneurysmal dilatation is observed. Mild degenerative changes are seen in the thoracic spine. IMPRESSION: 1. No central pulmonary emboli are observed. Evaluation for peripheral emboli is hindered by suboptimal contrast. 2. Findings consistent with prior viral pneumonia are observed. There is been an interval improvement in aeration since the previous exam. Electronically signed by: Israel Vargas MD 08/30/2020 10:51 AM LEAD ELECTRICAL ENGINEER
[2020-08-30 13:15] VITALS: BP 163/90; O2SAT 96
[2020-08-30 20:10] VITALS: TEMP 98.2
== END 2020-08-30 13:15 ==
LOC: ER 07:16
DX: U07.1 COVID-19 (principal); J12.89 Other viral pneumonia; M62.562 Muscle wasting and atrophy, not elsewhere classified, left lower leg; M62.561 Muscle wasting and atrophy, not elsewhere classified, right lower leg; R63.4 Abnormal weight loss; R53.1 Weakness; K21.9 Gastro-esophageal reflux disease without esophagitis; E11.9 Type 2 diabetes mellitus without complications; E07.9 Disorder of thyroid, unspecified; I10 Essential (primary) hypertension; Z79.4 Long term (current) use of insulin; Z79.899 Other long term (current) drug therapy; Z79.82 Long term (current) use of aspirin
CPT/HCPCS: 36415; 71045; 71275; 80053; 81001; 83605; 83880; 85025; 85379; 87040; 93005; J2060; J7120

== ENCOUNTER 2020-08-31 10:03 | Emergency (ER) | payer MEDICARE, OTHER ==
[2020-08-31] MEDS ORDERED: SODIUM CHLORIDE 0.9% (FLUSH) 10 ML SYG IV PRN (10:30)
--- NOTE | 2020-08-31 11:31 | RAD ---
EXAM DESCRIPTION: Chest,1 View CLINICAL HISTORY: 75 years Male, weakness COMPARISON: August 30, 2020 TECHNIQUE: AP portable chest. FINDINGS: Improvement in both lung bases now near normal. No new consolidation. Heart normal size. IMPRESSION: Improving bilateral pneumonia. Electronically signed by: Blaise Perez MD 08/31/2020 11:29 AM [facility]
--- NOTE | 2020-08-31 11:36 | CT ---
EXAM DESCRIPTION: CT-Head CLINICAL HISTORY: fall COMPARISON: None available TECHNIQUE: Multiple axial images of the head without contrast. Multiplanar reformatted images. This exam was performed according to our departmental dose-optimization program, which includes automated exposure control, adjustment of the mA and/or kV according to patient size and/or use of iterative reconstruction technique. FINDINGS: There is no CT evidence of intracranial hemorrhage, mass effect, or large territory infarction. Moderate generalized volume loss. Mild patchy supratentorial white matter hypodensities. There are no abnormal extra-axial fluid collections. Calcific plaque in the visualized arteries. There is no acute calvarial defect. The visualized paranasal sinuses and the mastoids are clear. IMPRESSION: 1. No CT evidence of an acute intracranial abnormality. If there is concern for an acute or subacute infarct, consider follow-up MRI. 2. Senescent changes. Electronically signed by: Epifanio Mason MD 08/31/2020 11:34 AM [facility] [id number]
[2020-08-31 12:36] VITALS: BP 177/143; O2SAT 96
--- NOTE | 2020-08-31 12:39 | ED.PDOC ---
History of Present Illness - General Chief Complaint: General Stated Complaint: weakness, s/p fall 4 days ago Time Seen by Provider: 08/31/20 10:30 Source: patient, RN notes reviewed, Vital Signs reviewed, RN/MD - Dr. Jama Cagle Exam Limitations: other - pt with mild dementia - History of Present Illness Initial Comments: Patient is a 75-year-old white male who presents with worsening confusion. Patient fell 4 days ago. Patient denies headache. Patient has been in and out of the hospital recently for Covid and rehabilitation. Patient complains of worsening weakness. He denies any confusion. Nothing makes the weakness better. It is worse when he tries to get up. The weakness is moderate. Timing/Duration: getting worse, other - 4 days Severity: moderate Improving Factors: nothing Worsening Factors: movement Associated Symptoms: denies symptoms Allergies/Adverse Reactions: Allergies NO KNOWN ALLERGY Allergy (Verified 08/20/20 17:36) Home Medications: Ambulatory Orders Meloxicam 15 mg PO DAILY 07/24/15 Multiple Vitamins W/ Minerals [Centrum Silver] 1 tab PO DAILY 07/24/15 Ramipril 10 mg PO BEDTIME 07/24/15 Rosuvastatin Calcium [Crestor] 10 mg PO BEDTIME 07/24/15 Sitagliptin-Metformin HCl [Janumet 50-1000 mg] 50 - 100 tab PO BID 07/24/15 Zolpidem Tartrate [Ambien] 5 mg PO BEDTIME 07/24/15 amLODIPine BESYLATE [Norvasc] 5 mg PO BID 07/24/15 Aspirin [Aspirin 81 Low Dose] 325 mg PO DAILY 08/19/20 Insulin Glargine [Basaglar Kwikpen] 15 - 25 unit SC BID 08/19/20 Citalopram Hydrobromide [Citalopram] 20 mg PO DAILY 08/20/20 Donepezil Hydrochloride [Donepezil HCl] 10 mg PO DAILY 08/20/20 Lansoprazole 15 mg PO DAILY 08/20/20 Tramadol HCl 50 mg PO PRN 08/20/20 Albuterol Inhaler [Ventolin Hfa Inhaler] 2 puff INH PRN PRN inh 08/23/20 Albuterol Inhaler [Ventolin Hfa Inhaler] 2 puff INH RTQID inh 08/23/20 Azithromycin Tab [Zithromax Tab] 250 mg PO QD #4 tab 08/23/20 Bifidobacterium Infantis [Align] 4 mg PO DAILY cap 08/23/20 Hydrocort 2.5% Crm (Anusol Hc) [Anusol-HC Cream] 1 applic LA QID PRN appli 08/23/20 guaiFENesin ER TAB [Mucinex Tab] 600 mg PO BID tab 08/23/20 Ivermectin 18 mg PO DAILY 2 Days #12 tab 08/31/20 Methylprednisolone [Medrol Dose Adama] 4 mg PO DAILY 6 Days #21 tab 08/31/20 Review of Systems - Review of Systems Constitutional: States: see HPI, weakness. Denies: chills, fever, malaise EENTM: States: no symptoms reported. Denies: eye pain, blurred vision, double vision Respiratory: States: no symptoms reported. Denies: cough, short of breath Cardiology: States: no symptoms reported. Denies: chest pain, palpitations, syncope Gastrointestinal/Abdominal: States: no symptoms reported. Denies: abdominal pain, diarrhea, nausea, vomiting Genitourinary: States: no symptoms reported. Denies: discharge, dysuria, frequency Musculoskeletal: States: no symptoms reported. Denies: back pain, joint pain, joint swelling, neck pain Neurological: States: see HPI, weakness. Denies: headache, tingling Endocrine: States: no symptoms reported. Denies: increased hunger, increased thirst, increased urine Hematologic/Lymphatic: States: no symptoms reported. Denies: blood clots, easy bleeding All other Systems: Reviewed and Negative, No Change from Baseline Past Medical History (General) - Patient Medical History Hx Seizures: No Hx Stroke: No Hx Dementia: No Hx Asthma: No Hx of COPD: No Hx Cardiac Disorders: No Hx Congestive Heart Failure: No Hx Pacemaker: No Hx Hypertension: Yes Hx Thyroid Disease: Yes Hx Diabetes: Yes Hx Gastroesophageal Reflux: Yes Hx Renal Disease: No Hx Cancer: No Hx of HIV: No Hx Hepatitis C: No Hx MRSA: No - Vaccination History Hx Tetanus, Diphtheria Vaccination: No Hx Influenza Vaccination: No Hx Pneumococcal Vaccination: No - Social History Hx Chewing Tobacco Use: No Hx Alcohol Use: No Hx Substance Use: No Hx Substance Use Treatment: No Hx Depression: No Hx Physical Abuse: No Hx Emotional Abuse: No Hx Suspected Abuse: No - Activities of Daily Living Care Home/Assisted Living (if applicable):: [facility] Agency (if applicable):: None - Female History Patient is a Female of Child Bearing Age (10 -59 yrs old): No Family Medical History - Family History Mother Family History: Unknown Living Status: Hx Family Hypertension: Yes Physical Exam - Physical Exam General Appearance: Alert, Comfortable, Unkempt, Well Developed, Well Hydrated, Well Nourished Eye Exam: bilateral normal Ears, Nose, Throat: hearing grossly normal, normal ENT inspection, normal pharynx Neck: non-tender, full range of motion, supple, normal inspection Respiratory: chest non-tender, lungs clear, normal breath sounds, no respiratory distress, no accessory muscle use Cardiovascular/Chest: normal peripheral pulses, regular rate, rhythm, no edema, no gallop, no JVD, no murmur Peripheral Pulses: radial,right: 2+, radial,left: 2+ Gastrointestinal/Abdominal: normal bowel sounds, non tender, soft, no organomegaly, no pulsatile mass Back Exam: normal inspection, no CVA tenderness, no vertebral tenderness Extremity: normal range of motion, non-tender, normal inspection 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 08/31/20 12:48 Patient's PCP, Dr. Cagle, has come by and discussed the patient with me. Patient's lab work is relatively unremarkable except for mild dehydration. Plan on discharge home on ivermectin and Medrol Dosepak for continued treatment for his Covid. I discussed this with his PCP and the patient and they voiced understanding and agreement. Patient to follow-up with his PCP on Friday. Nathaniel Deng M.D. #[id number] - Results/Orders Results/Orders: 08/31/20 10:30 IV Care:Saline Lock per Protoc QSHIFT Telemetry ONCE Sodium Chloride 0.9% (Flush) [Saline Flush Syringe] 3 ml IV PRN PRN EKG STAT Pulse Oximetry Assessment DAILY Laboratory Results - last 24 hr 08/31/20 08/31/20 10:20 11:46 WBC 15.5 H RBC 5.16 Hgb 15.6 Hct 46.0 MCV 89.1 MCH 30.2 MCHC 33.9 RDW 14.4 Plt Count 544 H MPV 7.4 Absolute Neuts (auto) 13.90 H Absolute Lymphs (auto) 0.70 L Absolute Monos (auto) 0.80 Absolute Eos (auto) 0.00 Absolute Basos (auto) 0.10 Neutrophils % 89.3 H Lymphocytes % 4.6 L Monocytes % 5.1 Eosinophils % 0.2 L Basophils % 0.8 PT 9.4 INR < 1.00 PTT (SP) 23.0 Sodium 129 L Potassium 4.0 Chloride 91 L Carbon Dioxide 22 Anion Gap 20.0 H BUN 21 H Creatinine 0.98 BUN/Creatinine Ratio 21.4 H Random Glucose 206 H D Serum Osmolality 267.9 L Calcium 9.2 Magnesium 2.0 Total Bilirubin 1.0 Direct Bilirubin 0.2 Indirect Bilirubin 0.8 AST 26 ALT 25 Alkaline Phosphatase 135 H Creatine Kinase 85 CK-MB (CK-2) 5.2 H* CK-MB (CK-2) % Not Reportable Troponin I < 0.02 B-Natriuretic Peptide 31.1 Serum Total Protein 8.3 H Albumin 4.3 Urine Color Yellow Urine Appearance Clear Urine pH 7.5 Ur Specific [place] 1.015 Urine Protein Negative Urine Glucose (UA) 500 H Urine Ketones 40 H Urine Blood Negative Urine Nitrite Negative Urine Bilirubin Negative Urine Urobilinogen 0.2 Ur Leukocyte Esterase Negative Urine RBC 1-3 Urine WBC 1-3 Ur Epithelial Cells 0 Urine Bacteria 0 EKG performed 31 August 2020 at 1039 hrs.: Normal sinus rhythm at 95 bpm, left atrial enlargement, possible anterior infarct, age indeterminate, abnormal EKG, old EKG not available for comparison at this time. EXAM DESCRIPTION: CT-Head CLINICAL HISTORY: fall COMPARISON: None available TECHNIQUE: Multiple axial images of the head without contrast. Multiplanar reformatted images. This exam was performed according to our departmental dose- optimization program, which includes automated exposure control, adjustment of the mA and/or kV according to patient size and/or use of iterative reconstruction technique. FINDINGS: There is no CT evidence of intracranial hemorrhage, mass effect, or large territory infarction. Moderate generalized volume loss. Mild patchy supratentorial white matter hypodensities. There are no abnormal extra-axial fluid collections. Calcific plaque in the visualized arteries. There is no acute calvarial defect. The visualized paranasal sinuses and the mastoids are clear. IMPRESSION: 1. No CT evidence of an acute intracranial abnormality. If there is concern for an acute or subacute infarct, consider follow-up MRI. 2. Senescent changes. Electronically signed by: Epifanio mary MD 08/31/2020 11:34 AM EXAM DESCRIPTION: Chest,1 View CLINICAL HISTORY: 75 years Male, weakness COMPARISON: August 30, 2020 TECHNIQUE: AP portable chest. FINDINGS: Improvement in both lung bases now near normal. No new consolidation. Heart normal size. IMPRESSION: Improving bilateral pneumonia. Electronically signed by: Blaise Perez MD 08/31/2020 11:29 AM Vital Signs 08/31/20 08/31/20 08/31/20 10:05 10:16 11:02 Temperature 97.0 F L 97.0 F L Pulse Rate 104 H Pulse Rate [ 111 H 111 H 104 H pulse ox] Respiratory 22 22 22 Rate Blood Pressure 136/99 145/88 [Left Arm] O2 Sat by Pulse 98 98 Oximetry 08/31/20 08/31/20 08/31/20 11:23 11:59 12:00 Temperature 98.1 F Pulse Rate 88 Pulse Rate [ 64 88 pulse ox] Respiratory 20 20 Rate Blood Pressure 107/62 177/143 [Left Arm] O2 Sat by Pulse 98 98 96 Oximetry Departure - Departure Clinical Impression: Confusion, COVID-19, Weakness Time of Disposition: 12:51 Disposition: Discharge to Home or Self Care Condition: Good Departure Forms: ED Discharge - Pt. Copy, Patient Portal Self Enrollment Instructions: Delirium (Confusion) (DC), Coronavirus Disease 2019 (COVID-19), Generalized Weakness (DC) Referrals: Ynes Childs FNP [Primary Care Provider] - 1-2 Weeks Prescriptions: Ivermectin 18 mg PO DAILY 2 Days #12 tab Methylprednisolone [Medrol Dose Adama] 4 mg PO DAILY 6 Days #21 tab Home Medications: Ambulatory Orders Meloxicam 15 mg PO DAILY 07/24/15 Multiple Vitamins W/ Minerals [Centrum Silver] 1 tab PO DAILY 07/24/15 Ramipril 10 mg PO BEDTIME 07/24/15 Rosuvastatin Calcium [Crestor] 10 mg PO BEDTIME 07/24/15 Sitagliptin-Metformin HCl [Janumet 50-1000 mg] 50 - 100 tab PO BID 07/24/15 Zolpidem Tartrate [Ambien] 5 mg PO BEDTIME 07/24/15 amLODIPine BESYLATE [Norvasc] 5 mg PO BID 07/24/15 Aspirin [Aspirin 81 Low Dose] 325 mg PO DAILY 08/19/20 Insulin Glargine [Basaglar Kwikpen] 15 - 25 unit SC BID 08/19/20 Citalopram Hydrobromide [Citalopram] 20 mg PO DAILY 08/20/20 Donepezil Hydrochloride [Donepezil HCl] 10 mg PO DAILY 08/20/20 Lansoprazole 15 mg PO DAILY 08/20/20 Tramadol HCl 50 mg PO PRN 08/20/20 Albuterol Inhaler [Ventolin Hfa Inhaler] 2 puff INH PRN PRN inh 08/23/20 Albuterol Inhaler [Ventolin Hfa Inhaler] 2 puff INH RTQID inh 08/23/20 Azithromycin Tab [Zithromax Tab] 250 mg PO QD #4 tab 08/23/20 Bifidobacterium Infantis [Align] 4 mg PO DAILY cap 08/23/20 Hydrocort 2.5% Crm (Anusol Hc) [Anusol-HC Cream] 1 applic LA QID PRN appli 08/23/20 guaiFENesin ER TAB [Mucinex Tab] 600 mg PO BID tab 08/23/20 Ivermectin 18 mg PO DAILY 2 Days #12 tab 08/31/20 Methylprednisolone [Medrol Dose Adama] 4 mg PO DAILY 6 Days #21 tab 08/31/20
[2020-08-31 13:11] VITALS: TEMP 97.8
== END 2020-08-31 13:25 ==
LOC: ER 10:03
DX: U07.1 COVID-19 (principal); R53.1 Weakness; R41.0 Disorientation, unspecified; J12.89 Other viral pneumonia; E86.0 Dehydration; K21.9 Gastro-esophageal reflux disease without esophagitis; I10 Essential (primary) hypertension; E07.9 Disorder of thyroid, unspecified; E11.9 Type 2 diabetes mellitus without complications; Z79.4 Long term (current) use of insulin; Z79.899 Other long term (current) drug therapy; Z79.82 Long term (current) use of aspirin